=== PATIENT | male | born 2000 | race Two or more races ===

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

== ENCOUNTER 2020-11-19 16:18 | Emergency (ER) | payer MEDICAID, OTHER ==
--- NOTE | 2020-11-19 16:46 | ED Physician Documentation ---
PD HPI CHEST PAIN - Stated complaint Stated Complaint: CHEST PX - Chief complaint Chief Complaint: Cardiac - History obtained from History obtained from: Patient - Additional information Additional information: 20-year-old gentleman has had 5 days of constant sharp nonradiating substernal chest pain. It is worse with both activity and exertion, it seems to be more the movement of the chest wall that does not than anything else. There is mild associated shortness of breath. No cough. No pedal edema or calf pain. He tried smoking weed which did not help. Pain does get worse when he tries to smoke a cigarette. No family history of heart issues. No recent travel. Review of Systems Ten Systems: 10 systems reviewed and negative Constitutional: denies: Fever, Chills Cardiac: denies: Palpitations, Pedal edema, Calf pain Respiratory: denies: Cough, Hemoptysis, Wheezing GI: denies: Abdominal Pain PD PAST MEDICAL HISTORY - Past Medical History Cardiovascular: None Respiratory: None Endocrine/Autoimmune: None GI: None : None HEENT: None Psych: ADD/ADHD Musculoskeletal: None Derm: None - Past Surgical History Past Surgical History: No - Present Medications Home Medications: Ambulatory Orders Medication Instructions Recorded Confirmed Omeprazole 40 mg PO DAILY #30 cap 11/19/20 - Allergies Allergies/Adverse Reactions: Allergies Allergy/AdvReac Type Severity Reaction Status Date / Time acetaminophen [From Percocet] Allergy Unknown Verified 03/17/18 22:16 methylphenidate Allergy Unknown Verified 11/19/20 16:35 [From Concerta] - Social History Does the pt smoke?: Yes Smoking Status: Current every day smoker Does the pt drink ETOH?: Yes Does the pt have substance abuse?: No - Immunizations Immunizations are current?: Yes - POLST Patient has POLST: No PD ED PE NORMAL - Vitals Vital signs reviewed: Yes - General General: Alert and oriented X 3, No acute distress - HEENT HEENT: PERRL, EOMI - Neck Neck: Supple, no meningeal sign, No bony TTP - Cardiac Cardiac: RRR, No murmur, Other (ttp TO THe anterior sternum which reproduces his pain.) - Respiratory Respiratory: No respiratory distress, Clear bilaterally - Abdomen Abdomen: Non tender - Back Back: No CVA TTP - Derm Derm: Normal color, Warm and dry - Extremities Extremities: No edema, No calf tenderness / cord - Neuro Neuro: Alert and oriented X 3, Normal speech Results - Vitals Vitals: Vital Signs - 24 hr 11/19/20 16:30 Temperature 36.9 C Heart Rate 97 Respiratory 20 Rate Blood Pressure 142/65 H O2 Saturation 98 Oxygen O2 Source Room air - EKG (time done) 1623 Rate: Rate (enter#) (100) Rhythm: NSR [place]: LAD Intervals: Normal [place] QRS: Normal Ischemia: ST elevation c/w repol, Non specific changes. No: ST elevation c/w ischemia, ST depression - Labs Labs: Laboratory Tests 11/19/20 11/19/20 11/19/20 17:07 17:07 17:07 WBC 5.6 RBC 4.74 Hgb 14.8 Hct 42.6 MCV 89.9 MCH 31.2 H MCHC 34.7 RDW 12.0 Plt Count 312 MPV 8.8 Neut # (Auto) 2.7 Lymph # (Auto) 2.3 [place] # (Auto) 0.5 Eos # (Auto) 0.1 Baso # (Auto) 0.1 Absolute Nucleated RBC 0.00 Nucleated RBC % 0.0 Sodium 139 Potassium 3.3 L Chloride 99 L Carbon Dioxide 25 Anion Gap 15.0 H BUN 11 Creatinine 0.7 Estimated GFR (MDRD) 142 Glucose 116 H Calcium 9.7 Troponin I High Sens 2.4 PD MEDICAL DECISION MAKING - ED course ED course: 20-year-old gentleman with reproducible chest pain. Heart score 0. PERC negative. Further evaluation prior to discharge she does admit that he has been drinking alcohol heavily lately. He was advised to stop, there may be some component of stomach acid/esophagitis issues that is causing this. He was prescribed a PPI as well. Departure - Departure Disposition: 01 Home, Self Care Clinical Impression: Chest wall pain Condition: Good Record reviewed to determine appropriate education?: Yes Instructions: ED Chest Pain Costochondritis Prescriptions: Omeprazole 40 mg PO DAILY #30 cap Comments: Your physical examination suggest that this pain is from your chest wall as opposed to something more serious. The testing on your heart and lungs was all normal without pertinent positive findings. You can take ibuprofen as needed for your pain. Follow-up with your primary care physician. Return if worse.
--- NOTE | 2020-11-19 17:04 | XRAY Report ---
PROCEDURE: Chest 2 View X-Ray INDICATIONS: chest pain TECHNIQUE: 2 view(s) of the chest. COMPARISON: None. FINDINGS: Surgical changes and devices: None. Lungs and pleura: No pleural effusions or pneumothorax. Lungs are clear. Mediastinum: Mediastinal contours are normal. Heart size is normal. Bones and chest wall: No suspicious bony abnormalities. Soft tissues appear unremarkable. IMPRESSION: No evidence of an acute cardiopulmonary abnormality. Reviewed by: Arthur Blanco DO on 11/19/2020 4:03 PM [facility] Approved by: Arthur Blanco DO on 11/19/2020 4:03 PM [facility] Station ID: [id number]
[2020-11-19 17:13] LABS: BASOPHILS # (AUTO) 0.1 10^3/uL (0.0-0.1); BASOPHILS % (AUTO) 1.8 %; EOSINOPHILS # (AUTO) 0.1 10^3/uL (0.0-0.7); EOSINOPHILS % (AUTO) 1.2 %; HGB - HEMOGLOBIN 14.8 g/dL (14.0-18.0); LYMPHOCYTES # (AUTO) 2.3 10^3/uL (1.5-3.5); LYMPHOCYTES % (AUTO) 40.2 %; MEAN CORPUSCULAR HEMOGLOBIN 31.2 pg (27.0-31.0); MEAN CORPUSCULAR HGB CONC 34.7 g/dL (32.0-36.0); MEAN CORPUSCULAR VOLUME 89.9 fL (80.0-94.0); MEAN PLATELET VOLUME 8.8 fL (7.4-11.4); MONOCYTES # (AUTO) 0.5 10^3/uL (0.0-1.0); MONOCYTES % (AUTO) 9.4 %; NEUTROPHILS # (AUTO) 2.7 10^3/uL (1.5-6.6); NEUTROPHILS % (AUTO) 47.2 %; PLT - PLATELET COUNT 312 10^3/uL (130-450); RED BLOOD COUNT 4.74 10^6/uL (4.70-6.10); WHITE BLOOD COUNT 5.6 x10^3/uL (4.8-10.8)
[2020-11-19 17:32] LABS: CALCIUM 9.7 mg/dL (8.5-10.3); CREATININE 0.7 mg/dL (0.6-1.2)
[2020-11-19] MEDS ORDERED: PANTOPRAZOLE 40 MG TABLET PO STA (18:10)
[2020-11-19 18:21] VITALS: BP 139/65
== END 2020-11-19 18:25 | disposition home or self-care (01) ==
LOC: ED 16:18
DX: R07.89 Other chest pain (principal); F17.200 Nicotine dependence, unspecified, uncomplicated
CPT/HCPCS: 36415; 71046; 80048; 84484; 85025; 93005; 99284; A9270

== ENCOUNTER 2021-05-04 16:09 | Emergency (ER) | payer MEDICAID ==
[2021-05-04 16:36] LABS: BASOPHILS # (AUTO) 0.1 10^3/uL (0.0-0.1); BASOPHILS % (AUTO) 1.3 %; EOSINOPHILS # (AUTO) 0.1 10^3/uL (0.0-0.7); HCT - HEMATOCRIT 40.8 % (42.0-52.0); HGB - HEMOGLOBIN 14.3 g/dL (14.0-18.0); LYMPHOCYTES % (AUTO) 42.3 %; MEAN CORPUSCULAR HEMOGLOBIN 30.4 pg (27.0-31.0); MEAN CORPUSCULAR VOLUME 86.6 fL (80.0-94.0); MEAN PLATELET VOLUME 8.5 fL (7.4-11.4); MONOCYTES # (AUTO) 0.7 10^3/uL (0.0-1.0); MONOCYTES % (AUTO) 9.7 %; NEUTROPHILS # (AUTO) 3.2 10^3/uL (1.5-6.6); NEUTROPHILS % (AUTO) 44.6 %; PLT - PLATELET COUNT 334 10^3/uL (130-450); RED BLOOD COUNT 4.71 10^6/uL (4.70-6.10); RED CELL DISTRIBUTION WIDTH 11.5 % (12.0-15.0); WHITE BLOOD COUNT 7.1 x10^3/uL (4.8-10.8)
[2021-05-04] MEDS ORDERED: IOPAMIDOL-300 100 ML VIAL ONE (16:42)
[2021-05-04 16:48] LABS: ALBUMIN/GLOBULIN RATIO 2.1 (1.0-2.2); BILIRUBIN,TOTAL 0.7 mg/dL (0.2-1.0); CALCIUM 9.3 mg/dL (8.5-10.3); CREATININE 0.7 mg/dL (0.6-1.2); POTASSIUM 3.5 mmol/L (3.5-5.0); TOTAL PROTEIN 7.4 g/dL (6.7-8.2)
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
[2021-05-04 18:01] VITALS: BP 133/73
[2021-05-04 18:07] LABS: BILIRUBIN,URINE NEGATIVE (NEGATIVE); GLUCOSE, URINE (UA) NEGATIVE (NEGATIVE); KETONES,URINE (UA) NEGATIVE (NEGATIVE); LEUKOCYTE ESTERASE, URINE NEGATIVE (NEGATIVE); NITRITE,URINE NEGATIVE (NEGATIVE); OCCULT BLOOD,URINE NEGATIVE (NEGATIVE); PROTEIN,URINE NEGATIVE (NEGATIVE); UROBILINOGEN,URINE 0.2 (NORMAL) E.U./dL (NORMAL)
[2021-05-04 18:09] LABS: CLARITY,URINE CLEAR (CLEAR)
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
[2021-05-04] MEDS ORDERED: IOPAMIDOL-300 100 ML VIAL IVP ONE (19:53)
== END 2021-05-04 18:43 | disposition home or self-care (01) ==
LOC: ED 16:09
DX: K92.1 Melena (principal); S39.91XA Unspecified injury of abdomen, initial encounter; V86.59XA Driver of other special all-terrain or other off-road motor vehicle injured in nontraffic accident, initial encounter; F17.200 Nicotine dependence, unspecified, uncomplicated
CPT/HCPCS: 36415; 74177; 80053; 81003; 83690; 85025; 99284; Q9967; 81001; 87086

== ENCOUNTER 2021-06-24 20:49 | Emergency (ER) | payer MEDICAID ==
[2021-06-24 21:38] LABS: BASOPHILS # (AUTO) 0.1 10^3/uL (0.0-0.1); BASOPHILS % (AUTO) 1.1 %; EOSINOPHILS # (AUTO) 0.1 10^3/uL (0.0-0.7); EOSINOPHILS % (AUTO) 1.2 %; HCT - HEMATOCRIT 46.6 % (42.0-52.0); LYMPHOCYTES # (AUTO) 2.7 10^3/uL (1.5-3.5); LYMPHOCYTES % (AUTO) 29.5 %; MEAN CORPUSCULAR HEMOGLOBIN 30.2 pg (27.0-31.0); MEAN CORPUSCULAR HGB CONC 34.3 g/dL (32.0-36.0); MEAN CORPUSCULAR VOLUME 88.1 fL (80.0-94.0); MEAN PLATELET VOLUME 8.7 fL (7.4-11.4); MONOCYTES # (AUTO) 0.5 10^3/uL (0.0-1.0); MONOCYTES % (AUTO) 5.4 %; NEUTROPHILS # (AUTO) 5.8 10^3/uL (1.5-6.6); NEUTROPHILS % (AUTO) 62.6 %; PLT - PLATELET COUNT 353 10^3/uL (130-450); RED BLOOD COUNT 5.29 10^6/uL (4.70-6.10); RED CELL DISTRIBUTION WIDTH 12.2 % (12.0-15.0); WHITE BLOOD COUNT 9.3 x10^3/uL (4.8-10.8)
[2021-06-24 21:56] LABS: ALBUMIN 4.9 g/dL (3.2-5.5); ALBUMIN/GLOBULIN RATIO 1.9 (1.0-2.2); BILIRUBIN,TOTAL 0.6 mg/dL (0.2-1.0); CALCIUM 9.6 mg/dL (8.5-10.3); CREATININE 0.6 mg/dL (0.6-1.2); POTASSIUM 3.9 mmol/L (3.5-5.0); TOTAL PROTEIN 7.5 g/dL (6.7-8.2)
--- NOTE | 2021-06-24 21:56 | XRAY Report ---
PROCEDURE: Chest 1 View X-Ray INDICATIONS: Chest pain TECHNIQUE: One view of the chest was acquired. COMPARISON: 11/19/2020 FINDINGS: Surgical changes and devices: None. Lungs and pleura: No pleural effusions or pneumothorax. Lungs are clear. Mediastinum: Mediastinal contours appear normal. Heart size is normal. Bones and chest wall: No suspicious bony lesions. Overlying soft tissues appear unremarkable. IMPRESSION: No acute process. Reviewed by: Michele Benson MD on 06/24/2021 9:54 PM PDT Approved by: Michele Benson MD on 06/24/2021 9:54 PM PDT Station ID: [id number]
[2021-06-24] MEDS ORDERED: LORazepam 2 MG/ML VIAL IVP STA (22:03)
[2021-06-24] MEDS ORDERED: SODIUM CHLORIDE 0.9% 1,000 ML IV STA (22:03)
[2021-06-24] MEDS ORDERED: IOPAMIDOL-300 100 ML VIAL ONE (22:18)
[2021-06-24] MEDS ORDERED: IOPAMIDOL-300 100 ML VIAL IVP ONE (22:54)
--- NOTE | 2021-06-24 23:15 | CT Report ---
PROCEDURE: ANGIO CHEST W/WO INDICATIONS: left pleuritic chest pain, tachycardia CONTRAST: IV CONTRAST: Isovue 300 ml: 100 PO CONTRAST: *NO PO CONTRAST TECHNIQUE: After the administration of intravenous contrast, images were acquired from the pulmonary apices to t he posterior costophrenic angles. 3-dimensional maximum intensity projection (MIP) coronal and sagit nate reformats were then acquired through the thorax. For radiation dose reduction, the following was used: automated exposure control, adjustment of mA and/or kV according to patient size. COMPARISON: Chest radiograph dated 06/24/2021 and 11/19/2020. CT of abdomen and pelvis dated 05/04/2021 FINDINGS: Image quality: Excellent. Pulmonary arteries: Pulmonary arteries are normal in size, and demonstrate no intraluminal filling d efects to suggest central pulmonary embolism. Lungs and pleura: Lungs are clear. No pleural effusions or pneumothorax. Central and peripheral ai rways are patent. Mediastinum: Heart size is normal, without pericardial effusion. No mediastinal or hilar adenopathy . Thoracic aorta is normal in caliber and enhancement. Esophagus is normal in caliber, without hiat al hernia. Bones and chest wall: No suspicious bony lesions. Ribs and thoracic spine appear intact throughout. No axillary or supraclavicular adenopathy. The thyroid is normal in size and there are no incident al findings. Abdomen: Visualized upper abdominal solid organs appear normal in the early arterial phase of enhanc ement. IMPRESSION: 1. No pulmonary bullae. No thoracic aortic aneurysm or dissection. 2. Bilateral lungs are clear. 3. No mediastinal or hilar lymphadenopathy. CLINICAL RECOMMENDATION STATEMENTS: In patients <35 years with an ITN detected on CT, MRI, or extrathyroidal ultrasound, the Committee re commends further evaluation with dedicated thyroid ultrasound if the nodule is ?1 cm and has no suspi cious imaging features, and if the patient has normal life expectancy. In patients ?35 years with an ITN detected on CT, MRI, or extrathyroidal ultrasound, the Committee re commends further evaluation with dedicated thyroid ultrasound if the nodule is ?1.5 cm and has no jojo picious imaging features, and if the patient has normal life expectancy. (ACR, 2014) Reviewed by: Tung Jamison MD on 06/24/2021 11:14 PM PDT Approved by: Tung Jamison MD on 06/24/2021 11:14 PM PDT Station ID: [id number]
[2021-06-24 23:18] LABS: B. PARAPERTUSSIS- RESP PCR PAN NOT DETECTED; B. PERTUSSIS- RESP PCR PANEL NOT DETECTED; C. PNEUMONIAE- RESP PCR PANEL NOT DETECTED; CORONAVIRUS 229E-RESP PCR NOT DETECTED; CORONAVIRUS HKU1-RESP PCR NOT DETECTED; CORONAVIRUS NL63-RESP PCR NOT DETECTED; CORONAVIRUS OC43-RESP PCR NOT DETECTED; HUMAN METAPNEUMOVIRUS NOT DETECTED; INFLUENZA A- RESP PCR PANEL NOT DETECTED; INFLUENZA B - RESP PCR PANEL NOT DETECTED; M. PNEUMONIAE- RESP PCR PANEL NOT DETECTED; PARAINFLUENZA VIRUS 1 NOT DETECTED; PARAINFLUENZA VIRUS 2 NOT DETECTED; PARAINFLUENZA VIRUS 3 NOT DETECTED; PARAINFLUENZA VIRUS 4 NOT DETECTED; RHINOVIRUS/ENTEROVIRUS NOT DETECTED; RSV- RESP PCR PANEL NOT DETECTED; SARS-CoV-2 -RESP PCR PANEL NOT DETECTED
--- NOTE | 2021-06-24 23:27 | ED Physician Documentation ---
PD HPI CHEST PAIN - Stated complaint Stated Complaint: SOA,CP,LIGHTHEADED - Chief complaint Chief Complaint: Cardiac - History obtained from History obtained from: Patient - History of Present Illness Timing - onset: How many weeks ago (1) Timing - details: Waxing and waning Pain level now: 3 Quality: Tightness, Pain Location: Left chest Radiation: Back (left lateral chest and left upper back) Improved by: Rest Worsened by: Exertion, Inspiration Associated symptoms: Shortness of air Similar symptoms before: Has not had sx before Recently seen: Not recently seen - Additional information Additional information: c/o 1 week of waxing and waning left chest pain radiates around left chest to left upper back. there is a mild pleuritic component. he has mild DUDLEY. denies h/o similar symptoms. Used CBD tincture tonight although he says he used less than previous. Review of Systems Constitutional: reports: Reviewed and negative Cardiac: reports: Chest pain / pressure. denies: Palpitations, Pedal edema, Calf pain Respiratory: reports: Dyspnea (mild dyspnea on exertion). denies: Cough GI: reports: Reviewed and negative Musculoskeletal: denies: Extremity swelling PD PAST MEDICAL HISTORY - Past Medical History Past Medical History: Yes Cardiovascular: None Respiratory: None Endocrine/Autoimmune: None GI: None : None HEENT: None Psych: Anxiety, ADD/ADHD Musculoskeletal: None Derm: None - Past Surgical History Past Surgical History: No - Present Medications Home Medications: Ambulatory Orders Medication Instructions Recorded Confirmed No Known Home Medications 05/04/21 06/24/21 - Allergies Allergies/Adverse Reactions: Allergies Allergy/AdvReac Type Severity Reaction Status Date / Time acetaminophen [From Percocet] Allergy Unknown Verified 06/24/21 20:51 methylphenidate Allergy Unknown Verified 06/24/21 20:51 [From Concerta] - Social History Does the pt smoke?: Yes Smoking Status: Current every day smoker Does the pt drink ETOH?: Yes Does the pt have substance abuse?: No - Immunizations Immunizations are current?: Yes - POLST Patient has POLST: No PD ED PE NORMAL - Vitals Vital signs reviewed: Yes - General General: Alert and oriented X 3, No acute distress, Well developed/nourished - Neck Neck: Supple, no meningeal sign - Cardiac Cardiac: No murmur, No gallop, No rub - Respiratory Respiratory: No respiratory distress, Clear bilaterally - Abdomen Abdomen: Soft, Non tender - Extremities Extremities: No edema PD ED PE EXPANDED - Cardiac Cardiac: Tachy, Regular Rhythm Results - Vitals Vitals: Oxygen O2 Source Room air - EKG (time done) No standard instances Rate: Rate (enter#) (125) Rhythm: Sinus tachycardia [place]: Normal Intervals: Normal [place] QRS: Normal Ischemia: Normal ST segments Other comments: Other comments (similar morphology to previous (November 2020)) - Labs Labs: Laboratory Tests 06/24/21 06/24/21 06/24/21 21:25 21:25 21:25 WBC 9.3 RBC 5.29 Hgb 16.0 Hct 46.6 MCV 88.1 MCH 30.2 MCHC 34.3 RDW 12.2 Plt Count 353 MPV 8.7 Neut # (Auto) 5.8 Lymph # (Auto) 2.7 [place] # (Auto) 0.5 Eos # (Auto) 0.1 Baso # (Auto) 0.1 Absolute Nucleated RBC 0.00 Nucleated RBC % 0.0 Sodium 139 Potassium 3.9 Chloride 102 Carbon Dioxide 27 Anion Gap 10.0 BUN 12 Creatinine 0.6 Estimated GFR (MDRD) 170 Glucose 105 H Calcium 9.6 Total Bilirubin 0.6 AST 27 ALT 30 Alkaline Phosphatase 73 Troponin I High Sens < 2.3 L Total Protein 7.5 Albumin 4.9 Globulin 2.6 Albumin/Globulin Ratio 1.9 Lipase 32 Nasal Adenovirus (PCR) Nasal B. parapertussis DNA (PCR) Nasal Coronavir 229E PCR Nasal Coronavir HKU1 PCR Nasal Coronavir NL63 PCR Nasal Coronavir OC43 PCR Nasal Enterovir/Rhinovir PCR Nasal Influenza B PCR Nasal Influenza A PCR Nasal Parainfluen 1 PCR Nasal Parainfluen 2 PCR Nasal Parainfluen 3 PCR Nasal Parainfluen 4 PCR Nasal RSV (PCR) Nasal B.pertussis DNA PCR Nasal C.pneumoniae (PCR) João Human Metapneumo PCR Nasal M.pneumoniae (PCR) Nasal SARS-CoV-2 (PCR) 06/24/21 22:13 WBC RBC Hgb Hct MCV MCH MCHC RDW Plt Count MPV Neut # (Auto) Lymph # (Auto) [place] # (Auto) Eos # (Auto) Baso # (Auto) Absolute Nucleated RBC Nucleated RBC % Sodium Potassium Chloride Carbon Dioxide Anion Gap BUN Creatinine Estimated GFR (MDRD) Glucose Calcium Total Bilirubin AST ALT Alkaline Phosphatase Troponin I High Sens Total Protein Albumin Globulin Albumin/Globulin Ratio Lipase Nasal Adenovirus (PCR) NOT DETECTED Nasal B. parapertussis DNA (PCR) NOT DETECTED Nasal Coronavir 229E PCR NOT DETECTED Nasal Coronavir HKU1 PCR NOT DETECTED Nasal Coronavir NL63 PCR NOT DETECTED Nasal Coronavir OC43 PCR NOT DETECTED Nasal Enterovir/Rhinovir PCR NOT DETECTED Nasal Influenza B PCR NOT DETECTED Nasal Influenza A PCR NOT DETECTED Nasal Parainfluen 1 PCR NOT DETECTED Nasal Parainfluen 2 PCR NOT DETECTED Nasal Parainfluen 3 PCR NOT DETECTED Nasal Parainfluen 4 PCR NOT DETECTED Nasal RSV (PCR) NOT DETECTED Nasal B.pertussis DNA PCR NOT DETECTED Nasal C.pneumoniae (PCR) NOT DETECTED João Human Metapneumo PCR NOT DETECTED Nasal M.pneumoniae (PCR) NOT DETECTED Nasal SARS-CoV-2 (PCR) NOT DETECTED - Rads (name of study) chest xray Radiology: Prelim report reviewed, See rad report CT chest angio Radiology: Prelim report reviewed, See rad report PD MEDICAL DECISION MAKING - ED course Complexity details: reviewed old records, reviewed results, re-evaluated patient, considered differential, d/w patient ED course: presents with chest pain of 1 week duration with mild dyspnea. No cardiac (ACS) risk factors. No findings on EKG nor blood tests to suggest acute/concerning cause such as ACS, pericarditis. CXR without abnormalities. He is tachycardic on presentation and thus given 0.5mg lorazepam for possible anxiety component as well as IV fluids for possible dehydration component. These did not result in adequate improvement and thus CT chest angio (PE study) performed, and this also has no demonstrable abnormalities. Prior to discharge he is in NAD and his pulse is upper 90s and normotensive. Results reviewed w/ patient. Departure - Departure Disposition: 01 Home, Self Care Clinical Impression: Sinus tachycardia Chest pain Qualifiers: Chest pain type: unspecified Qualified Code(s): R07.9 - Chest pain, unspecified Condition: Good Instructions: ED Chest Pain Atypical Unkn Cause Follow-Up: Nimesh Ocampo MD [Physician No Access] - Discharge Date/Time: 06/25/21 00:33
[2021-06-25 00:13] VITALS: BP 124/71
== END 2021-06-25 00:33 | disposition home or self-care (01) ==
LOC: ED 20:49
DX: R00.0 Tachycardia, unspecified (principal); F17.200 Nicotine dependence, unspecified, uncomplicated; Z20.822 Contact with and (suspected) exposure to COVID-19
CPT/HCPCS: 0202U; 36415; 71045; 71275; 80053; 83690; 84484; 85025; 93005; 96361; 96374; 99284; J2060; Q9967

== ENCOUNTER 2023-01-05 14:51 | Emergency (ER) | payer MEDICAID ==
[2023-01-05 15:00] VITALS: BP 134/74
--- NOTE | 2023-01-05 15:13 | ED Physician Documentation ---
PD HPI HEENT - Stated complaint Stated Complaint: BOTH EAR PX - Chief complaint Chief Complaint: Heent - History obtained from History obtained from: Patient - Additional information Additional information: 22-year-old gentleman with chronic recurrent issues with earwax has had muffled hearing for several days which worsened when he tried to use a home candle wax treatment today. He also noticed some blood from the ear canals after that. PD PAST MEDICAL HISTORY - Past Medical History Cardiovascular: None Respiratory: None Endocrine/Autoimmune: None GI: None : None HEENT: None Psych: Anxiety, ADD/ADHD Musculoskeletal: None Derm: None - Past Surgical History Past Surgical History: No - Present Medications Home Medications: Ambulatory Orders Medication Instructions Recorded Confirmed Neomycin/Polymyx/Hc Otic Drops 4 drops OT TID #1 each 01/05/23 [Cortisporin Ear Susp] - Allergies Allergies/Adverse Reactions: Allergies Allergy/AdvReac Type Severity Reaction Status Date / Time acetaminophen [From Percocet] Allergy Unknown Verified 01/05/23 15:00 methylphenidate Allergy Unknown Verified 01/05/23 15:00 [From Concerta] - Social History Does the pt smoke?: Yes Smoking Status: Current every day smoker Does the pt drink ETOH?: Yes Does the pt have substance abuse?: No - Immunizations Immunizations are current?: Yes - POLST Patient has POLST: No PD ED PE NORMAL - Vitals Vital signs reviewed: Yes - General General: Alert and oriented X 3, No acute distress - HEENT HEENT: Other (He has bilateral cerumen impactions with some scraping of the canals especially posteriorly from his home attempts.) - Neuro Neuro: Alert and oriented X 3, Normal speech Results - Vitals Vitals: Vital Signs - 24 hr 01/05/23 14:56 Temperature 36.9 C Heart Rate 116 H Respiratory 16 Rate Blood Pressure 134/74 H O2 Saturation 97 Oxygen O2 Source Room air Procedures - General procedure General procedure: Using a combination of curette and syringe irrigation both ears were cleared of cerumen. PD Medical Decision Making - ED course ED course: 22-year-old gentleman with bilateral cerumen impactions. Attempts at home treatment prior to arrival also caused abrasions to the ear canal which made treatment here more painful but we were successful. Departure - Departure Disposition: 01 Home, Self Care Clinical Impression: Impacted cerumen of both ears, Abrasion of ear canal Condition: Good Record reviewed to determine appropriate education?: Yes Instructions: ED Wax Ear Home Removal Prescriptions: Neomycin/Polymyx/Hc Otic Drops [Cortisporin Ear Susp] 4 drops OT TID #1 each Comments: Follow-up with your doctor in a week for recheck. Return for new or worsening symptoms.
== END 2023-01-05 15:34 | disposition home or self-care (01) ==
LOC: ED 14:51
DX: H61.23 Impacted cerumen, bilateral (principal); S00.412A Abrasion of left ear, initial encounter; S00.411A Abrasion of right ear, initial encounter; X58.XXXA Exposure to other specified factors, initial encounter; F17.200 Nicotine dependence, unspecified, uncomplicated
CPT/HCPCS: 99282; 99283

== ENCOUNTER 2023-11-17 16:01 | Emergency (ER) | payer MEDICAID ==
[2023-11-17 16:30] LABS: BASOPHILS # (AUTO) 0.1 10^3/uL (0.0-0.1); BASOPHILS % (AUTO) 0.5 %; EOSINOPHILS # (AUTO) 0.6 10^3/uL (0.0-0.7); EOSINOPHILS % (AUTO) 6.5 %; HCT - HEMATOCRIT 48.9 % (42.0-52.0); HGB - HEMOGLOBIN 15.8 g/dL (14.0-18.0); LYMPHOCYTES # (AUTO) 2.5 10^3/uL (1.5-3.5); LYMPHOCYTES % (AUTO) 27.2 %; MEAN CORPUSCULAR HEMOGLOBIN 28.7 pg (27.0-31.0); MEAN CORPUSCULAR HGB CONC 32.3 g/dL (32.0-36.0); MEAN CORPUSCULAR VOLUME 88.9 fL (80.0-94.0); MEAN PLATELET VOLUME 8.7 fL (7.4-11.4); MONOCYTES # (AUTO) 0.8 10^3/uL (0.0-1.0); NEUTROPHILS # (AUTO) 5.1 10^3/uL (1.5-6.6); NEUTROPHILS % (AUTO) 56.5 %; PLT - PLATELET COUNT 376 10^3/uL (130-450); RED CELL DISTRIBUTION WIDTH 12.4 % (12.0-15.0); WHITE BLOOD COUNT 9.1 x10^3/uL (4.8-10.8)
[2023-11-17 16:38] LABS: PT - PROTHROMBIN TIME 10.3 secs (9.9-12.6)
[2023-11-17 17:01] LABS: ALBUMIN 4.6 g/dL (3.2-5.5); ALBUMIN/GLOBULIN RATIO 1.8 (1.0-2.2); BILIRUBIN,TOTAL 0.3 mg/dL (0.2-1.0); CALCIUM 10.1 mg/dL (8.5-10.3); CREATININE 0.7 mg/dL (0.6-1.3); POTASSIUM 3.8 mmol/L (3.5-4.5); TOTAL PROTEIN 7.2 g/dL (6.4-8.9)
[2023-11-17 20:05] VITALS: BP 121/75; O2SAT 98
--- NOTE | 2023-11-17 20:06 | ED Physician Documentation ---
PD HPI GI BLEED - Stated complaint Stated Complaint: BLOOD IN STOOL - Chief complaint Chief Complaint: Abd Pain - History obtained from History obtained from: Patient - Additional information Additional information: HPI from patient. Patient c/o bright red-maroon stool , episodic over past few months. Denies pain. Has not sought medical attention for this until tonight. He says he presents tonight due to increased amount of BRBPR; patient says "the bowl was filled with blood" tonight. Denies chest pain, dyspnea. Does not take blood thinners. Review of Systems Constitutional: denies: Fever, Chills, Sweats Cardiac: reports: Reviewed and negative Respiratory: reports: Reviewed and negative GI: reports: Bloody / black stool. denies: Abdominal Pain, Abdominal Swelling, Nausea, Vomiting, Constipation, Diarrhea, Hematemesis PD PAST MEDICAL HISTORY - Past Medical History Past Medical History: Yes Cardiovascular: None Respiratory: None Endocrine/Autoimmune: None GI: None : None HEENT: None Psych: Anxiety, ADD/ADHD Musculoskeletal: None Derm: None - Past Surgical History Past Surgical History: No - Present Medications Home Medications: Ambulatory Orders Medication Instructions Recorded Confirmed No Known Home Medications 11/17/23 11/17/23 - Allergies Allergies/Adverse Reactions: Allergies Allergy/AdvReac Type Severity Reaction Status Date / Time acetaminophen [From Percocet] Allergy Unknown Verified 11/17/23 16:04 methylphenidate Allergy Unknown Verified 11/17/23 16:04 [From Concerta] - Social History Does the pt smoke?: Yes Smoking Status: Current every day smoker Does the pt drink ETOH?: Yes Does the pt have substance abuse?: No - Immunizations Immunizations are current?: Yes - POLST Patient has POLST: No PD ED PE NORMAL - Vitals Vital signs reviewed: Yes - General General: Alert and oriented X 3, No acute distress, Well developed/nourished - Cardiac Cardiac: RRR, No murmur - Respiratory Respiratory: No respiratory distress, Clear bilaterally - Abdomen Abdomen: Normal bowel sounds, Soft, Non tender, Non distended, No organomegaly PD ED PE EXPANDED - Rectal Rectal: Other (external exam only). No: Hemorrhoid, Fissure Results - Vitals Vitals: Oxygen O2 Source Room air - Labs Labs: Laboratory Tests 02/05/24 02/05/24 02/05/24 16:20 16:20 16:20 WBC 9.1 RBC 5.50 Hgb 15.8 Hct 48.9 MCV 88.9 MCH 28.7 MCHC 32.3 RDW 12.4 Plt Count 376 MPV 8.7 Neut # (Auto) 5.1 Lymph # (Auto) 2.5 [place] # (Auto) 0.8 Eos # (Auto) 0.6 Baso # (Auto) 0.1 Absolute Nucleated RBC 0.00 Nucleated RBC % 0.0 PT 10.3 INR 1.0 Sodium Potassium Chloride Carbon Dioxide Anion Gap BUN Creatinine Estimated GFR (MDRD) Glucose Calcium Total Bilirubin AST ALT Alkaline Phosphatase Total Protein Albumin Globulin Albumin/Globulin Ratio Lipase Blood Type O POSITIVE Antibody Screen NEGATIVE 11/17/23 16:20 WBC RBC Hgb Hct MCV MCH MCHC RDW Plt Count MPV Neut # (Auto) Lymph # (Auto) [place] # (Auto) Eos # (Auto) Baso # (Auto) Absolute Nucleated RBC Nucleated RBC % PT INR Sodium 140 Potassium 3.8 Chloride 105 Carbon Dioxide 27 Anion Gap 8.0 BUN 9 Creatinine 0.7 Estimated GFR (MDRD) 139 Glucose 81 Calcium 10.1 Total Bilirubin 0.3 AST 15 ALT 20 Alkaline Phosphatase 97 Total Protein 7.2 Albumin 4.6 Globulin 2.6 Albumin/Globulin Ratio 1.8 Lipase 36 Blood Type Antibody Screen PD Medical Decision Making - ED course Complexity details: reviewed results, re-evaluated patient, considered diff erential, d/w patient ED course: Normal CBC, ER abdominal panel, and INR. Benign exam including abdominal exam (no masses, nontender) and external rectal exam (no bleeding, fissures, hemorrhoids). Did not perform digital rectal exam as result of said exam would not change immediate management. I advised him to seek outpatient follow up with a primary care provider; lack of abnormal findings does not mean absence of a medical problem and further testing (such as colonoscopy) might be appropriate in outpatient setting, particularly if symptoms continue. Return precautions reviewed. Departure - Departure Disposition: 01 Home, Self Care Clinical Impression: Hematochezia Condition: Good Instructions: ED Hematochezia Stable Comments: There were no abnormalities on tonight's blood tests (CBC or complete blood count, electrolytes, kidney function test, blood sugar, liver function tests, pancreatic enzyme blood test, and a clotting study that was normal which means that your blood is clotting normally). I did not visualize any cause of your bleeding on the exam; specifically, no evidence of hemorrhoids nor of any tears (anal fissure). The cause of your bleeding is not apparent at this time. As we discussed, it is very important that you follow-up in the outpatient setting. You will would likely benefit from further testing for your ongoing gastrointestinal bleeding; mended this test can only be performed in the outpatient setting such as a colonoscopy or sigmoidoscopy. Forms: PCP List Discharge Date/Time: 11/17/23 20:36
== END 2023-11-17 20:36 | disposition home or self-care (01) ==
LOC: ED 16:01
DX: K92.1 Melena (principal)
CPT/HCPCS: 36415; 80053; 83690; 85025; 85610; 86850; 86900; 86901; 99283